=== PATIENT | male | born 1985 | race Caucasian/White ===

== ENCOUNTER 2022-12-10 05:59 | Emergency (ER) | payer OTHER, SELFPAY ==
[2022-12-10] VITALS (9 sets, daily range): BP systolic 114–182; BP diastolic 75–103; PULSE 51–71; RESP 15–21; TEMP 36.6; O2SAT 95–99; BMI 31.1
--- NOTE | 2022-12-10 06:10 | ED_ITS ---
HPI - General Adult <Janice Han MD - Last Filed: 12/11/22 02:23> General Chief complaint: Chest Pain Stated complaint: SEVERE HEART BURN Time Seen by Provider: 12/10/22 06:09 History of Present Illness HPI narrative: 37-year-old gentleman with occasional reflux for which he takes Pepcid no significant medical history otherwise was awakened from sleep at 5:30 a.m. this morning with severe burning chest pain that he presumed was heartburn. He is never had pain like this before. Notes that he had a handful of plain potato chips not too long before going to bed and attributed the pain initially to the dietary indiscretion. The pain has lessened and how he use describing central tightness/pressure over his chest. There was no diaphoresis, coughing, fever, dyspnea, palpitations. Not complaining of headache, nausea vomiting or lower abdominal pain. He says his mother and paternal grandfather both have heart problems but isn't clear that anyone in his family has evidence of early cardiac disease. Related Data Allergies Allergy/AdvReac Type Severity Reaction Status Date / Time No Known Drug Allergies Allergy Verified 12/10/22 06:16 Review of Systems <Janice Han MD - Last Filed: 12/11/22 02:23> Review of Systems Narrative: Pertinent positive and negative findings as per HPI Patient History <Janice Han MD - Last Filed: 12/11/22 02:23> Social History Smoking Status: Former smoker Exam <Janice Han MD - Last Filed: 12/11/22 02:23> Initial Vital Signs Initial Vital Signs: Vital Signs Temperature 97.9 F 12/10/22 06:00 Pulse Rate 65 12/10/22 06:00 Respiratory Rate 15 12/10/22 06:00 Blood Pressure 182/103 H 12/10/22 06:00 Pulse Oximetry 98 12/10/22 06:00 Oxygen Delivery Method Room Air 12/10/22 06:00 General: Healthy appearing, in no acute distress. Able to give a complete and coherent history. Well-nourished well-developed HEENT: Moist mucous membranes, normal sclera with reactive pupils, Neck: No JVD, supple Respiratory: Lungs are clear to auscultation, no wheezing no rales no rhonchi. Full and symmetrical air movement Cardiac: Regular rate and rhythm no murmurs no bruits Abdomen: Soft, no significant reproducible epigastric tenderness, good bowel tones, no flank pain Skin: Warm and dry, no rashes, no diaphoresis Neurologic: Grossly neurologically intact with no obvious asymmetries or abnormalities Extremities: No trauma, well perfused Psych: Cooperative, appropriate insight and affect <Paul Dumont DO - Last Filed: 12/10/22 12:16> Initial Vital Signs Initial Vital Signs: Vital Signs Temperature 97.9 F 12/10/22 06:00 Pulse Rate 65 12/10/22 06:00 Respiratory Rate 15 12/10/22 06:00 Blood Pressure 182/103 H 12/10/22 06:00 Pulse Oximetry 98 12/10/22 06:00 Oxygen Delivery Method Room Air 12/10/22 06:00 Scores <Janice Han MD - Last Filed: 12/11/22 02:23> HEART Score Heart Score Total: 0 <Paul Dumont DO - Last Filed: 12/10/22 12:16> HEART Score Heart Score history: Slightly Suspicious Heart Score EKG: Normal Heart Score Age: < 45 years old Heart Score risk factors: No known risk factors Heart Score troponin: < or = to normal limit Heart Score Total: 0 Course <Janice Han MD - Last Filed: 12/11/22 02:23> Orders Ordered: Discontinued Medications Aspirin (Aspirin 81 Mg Chew Tab) 324 mg PO NOW ONE Stop: 12/10/22 06:35 Last Admin: 12/10/22 06:37 Dose: 324 mg Documented By: DAMIAN Al Hydrox/Mg Hydrox/Simethicone 20 ml/ Lidocaine HCl 15 ml 0 ml PO NOW ONE Stop: 12/10/22 06:11 Last Admin: 12/10/22 07:03 Dose: Not Given Documented By: DAMIAN Magnesium Hydroxide (Magnesium Hydroxide 30 Ml Udc) 30 ml PO NOW ONE Stop: 12/10/22 06:15 Last Admin: 12/10/22 06:19 Dose: 30 ml Documented By: DAMIAN Nitroglycerin (Nitroglycerin 0.4 Mg Sl Tab) 0.4 mg SL [id number] PRN PRN Reason: Chest Pain Vital Signs Vital signs: Vital Signs - 8 hr 12/10/22 06:00 12/10/22 06:09 12/10/22 06:30 Temperature 97.9 F Pulse Rate 65 68 Respiratory Rate 15 Blood Pressure 182/103 H 142/93 H Pulse Oximetry 98 99 Oxygen Delivery Method Room Air 12/10/22 06:30 12/10/22 07:00 12/10/22 07:00 Temperature Pulse Rate 65 71 Respiratory Rate 19 16 Blood Pressure 123/75 Pulse Oximetry 97 95 Oxygen Delivery Method 12/10/22 07:30 12/10/22 07:30 12/10/22 08:00 Temperature Pulse Rate 71 Respiratory Rate 21 Blood Pressure 123/80 114/76 Pulse Oximetry 96 Oxygen Delivery Method 12/10/22 08:00 12/10/22 08:30 12/10/22 08:30 Temperature Pulse Rate 56 L 68 Respiratory Rate 17 20 Blood Pressure 132/87 Pulse Oximetry 96 97 Oxygen Delivery Method 12/10/22 09:00 12/10/22 09:00 12/10/22 09:14 Temperature Pulse Rate 51 L Respiratory Rate 15 Blood Pressure 127/87 131/90 Pulse Oximetry 97 Oxygen Delivery Method 12/10/22 09:14 Temperature Pulse Rate 62 Respiratory Rate 19 Blood Pressure Pulse Oximetry 97 Oxygen Delivery Method <Paul Dumont, - Last Filed: 12/10/22 12:16> Orders Ordered: Discontinued Medications Aspirin (Aspirin 81 Mg Chew Tab) 324 mg PO NOW ONE Stop: 12/10/22 06:35 Last Admin: 12/10/22 06:37 Dose: 324 mg Documented By: DAMIAN Al Hydrox/Mg Hydrox/Simethicone 20 ml/ Lidocaine HCl 15 ml 0 ml PO NOW ONE Stop: 12/10/22 06:11 Last Admin: 12/10/22 07:03 Dose: Not Given Documented By: DAMIAN Magnesium Hydroxide (Magnesium Hydroxide 30 Ml Udc) 30 ml PO NOW ONE Stop: 12/10/22 06:15 Last Admin: 12/10/22 06:19 Dose: 30 ml Documented By: DAMIAN Nitroglycerin (Nitroglycerin 0.4 Mg Sl Tab) 0.4 mg SL [id number] PRN PRN Reason: Chest Pain Vital Signs Vital signs: Vital Signs - 8 hr 12/10/22 06:00 12/10/22 06:09 12/10/22 06:30 Temperature 97.9 F Pulse Rate 65 68 Respiratory Rate 15 Blood Pressure 182/103 H 142/93 H Pulse Oximetry 98 99 Oxygen Delivery Method Room Air 12/10/22 06:30 12/10/22 07:00 12/10/22 07:00 Temperature Pulse Rate 65 71 Respiratory Rate 19 16 Blood Pressure 123/75 Pulse Oximetry 97 95 Oxygen Delivery Method 12/10/22 07:30 12/10/22 07:30 12/10/22 08:00 Temperature Pulse Rate 71 Respiratory Rate 21 Blood Pressure 123/80 114/76 Pulse Oximetry 96 Oxygen Delivery Method 12/10/22 08:00 12/10/22 08:30 12/10/22 08:30 Temperature Pulse Rate 56 L 68 Respiratory Rate 17 20 Blood Pressure 132/87 Pulse Oximetry 96 97 Oxygen Delivery Method 12/10/22 09:00 12/10/22 09:00 12/10/22 09:14 Temperature Pulse Rate 51 L Respiratory Rate 15 Blood Pressure 127/87 131/90 Pulse Oximetry 97 Oxygen Delivery Method 12/10/22 09:14 Temperature Pulse Rate 62 Respiratory Rate 19 Blood Pressure Pulse Oximetry 97 Oxygen Delivery Method Medical Decision Making <Janice Han MD - Last Filed: 12/11/22 02:23> Lab Data 12/10/22 06:30 12/10/22 06:30 Labs: Lab Results 12/10/22 12/10/22 12/10/22 Range/Units 06:30 06:30 06:30 WBC 7.7 (4.5-11.0) X10^3/uL RBC 4.90 (4.5-5.9) X10^6/uL Hgb 15.2 (13.5-17.5) g/dL Hct 43.9 (41-53) % MCV 89.6 (80-100) fL MCH 31.0 (26-34) PG MCHC 34.6 (30-36) % RDW 13.1 (11.6-14.8) % Plt Count 238 (150-400) X10^3/uL Neut % (Auto) 50.9 (50-75) % Lymph % (Auto) 32.2 (25-40) % [place] % (Auto) 9.5 (3-14) % Eos % (Auto) 6.7 H (2-4) % Baso % (Auto) 0.7 (0-2) % Neut # (Auto) 3900 (2009-0165) /uL Lymph # (Auto) 2500 (3969-6709) /uL [place] # (Auto) 700 (0-900) /uL Eos # (Auto) 500 H (0-450) /uL Baso # (Auto) 100 (0-100) /uL PT 12.0 (10.1-12.7) SECONDS INR 1.0 (0.9-1.3) APTT 31 (26-36) SECONDS Sodium 138 (137-145) mmol/L Potassium 3.9 (3.4-5.1) mmol/L Chloride 104 (98-107) mmol/L Carbon Dioxide 29 (22-32) mmol/L BUN 16 (9-20) mg/dL Creatinine 0.84 (0.66-1.25) mg/dL Estimated GFR > 60 (>60) mL/min BUN/Creatinine Ratio 19.0 (6-22) Glucose 96 (70-100) mg/dL Calcium 8.7 (8.4-10.2) mg/dL Magnesium 2.1 (1.6-2.3) mg/dL Total Bilirubin 0.4 (0.2-1.3) mg/dL AST 33 (17-59) IU/L ALT 43 (<50) IU/L Alkaline Phosphatase 55 (38-126) U/L Total Creatine Kinase 139 (55-170) U/L CK-MB (CK-2) TNP CK-MB (CK-2) Rel Index TNP Troponin I < 0.012 (0.01-0.034) ng/mL Total Protein 6.8 (6.3-8.2) g/dL Albumin 4.1 (3.5-5.0) g/dL Globulin 2.7 (1.7-4.1) g/dL Albumin/Globulin Ratio 1.5 (1.0-2.8) Lipase 146 (23-300) U/L 12/10/22 Range/Units 08:25 WBC (4.5-11.0) X10^3/uL RBC (4.5-5.9) X10^6/uL Hgb (13.5-17.5) g/dL Hct (41-53) % MCV (80-100) fL MCH (26-34) PG MCHC (30-36) % RDW (11.6-14.8) % Plt Count (150-400) X10^3/uL Neut % (Auto) (50-75) % Lymph % (Auto) (25-40) % [place] % (Auto) (3-14) % Eos % (Auto) (2-4) % Baso % (Auto) (0-2) % Neut # (Auto) (1995-3306) /uL Lymph # (Auto) (5955-6291) /uL [place] # (Auto) (0-900) /uL Eos # (Auto) (0-450) /uL Baso # (Auto) (0-100) /uL PT (10.1-12.7) SECONDS INR (0.9-1.3) APTT (26-36) SECONDS Sodium (137-145) mmol/L Potassium (3.4-5.1) mmol/L Chloride (98-107) mmol/L Carbon Dioxide (22-32) mmol/L BUN (9-20) mg/dL Creatinine (0.66-1.25) mg/dL Estimated GFR (>60) mL/min BUN/Creatinine Ratio (6-22) Glucose (70-100) mg/dL Calcium (8.4-10.2) mg/dL Magnesium (1.6-2.3) mg/dL Total Bilirubin (0.2-1.3) mg/dL AST (17-59) IU/L ALT (<50) IU/L Alkaline Phosphatase (38-126) U/L Total Creatine Kinase (55-170) U/L CK-MB (CK-2) CK-MB (CK-2) Rel Index Troponin I < 0.012 (0.01-0.034) ng/mL Total Protein (6.3-8.2) g/dL Albumin (3.5-5.0) g/dL Globulin (1.7-4.1) g/dL Albumin/Globulin Ratio (1.0-2.8) Lipase (23-300) U/L MDM Narrative Medical decision making narrative: CC: Severe burning central chest pain. Acute finding uncertain prognosis Data collected from: patient, Medical records reviewed: No records available for review Differential considered: Reflux, acute coronary syndrome, pneumothorax Exam documented above, pertinent findings include: Fairly benign exam with no epigastric tenderness on palpation. No evidence of acute surgical abdomen. Lab Test results independently reviewed as above. Pertinent findings: Independently reviewed EKG: sinus rhythm at a rate of 72. Normal intervals, normal axis. No acute ischemic changes Imaging studies independently reviewed: Consultations: Treatments: Initially given Maalox(viscous lidocaine is back ordered). Re-evaluations: Discussion: <Paul Dumont DO - Last Filed: 12/10/22 12:16> Lab Data Labs: Lab Results 12/10/22 12/10/22 12/10/22 Range/Units 06:30 06:30 06:30 WBC 7.7 (4.5-11.0) X10^3/uL RBC 4.90 (4.5-5.9) X10^6/uL Hgb 15.2 (13.5-17.5) g/dL Hct 43.9 (41-53) % MCV 89.6 (80-100) fL MCH 31.0 (26-34) PG MCHC 34.6 (30-36) % RDW 13.1 (11.6-14.8) % Plt Count 238 (150-400) X10^3/uL Neut % (Auto) 50.9 (50-75) % Lymph % (Auto) 32.2 (25-40) % [place] % (Auto) 9.5 (3-14) % Eos % (Auto) 6.7 H (2-4) % Baso % (Auto) 0.7 (0-2) % Neut # (Auto) 3900 (5561-9478) /uL Lymph # (Auto) 2500 (7128-1902) /uL [place] # (Auto) 700 (0-900) /uL Eos # (Auto) 500 H (0-450) /uL Baso # (Auto) 100 (0-100) /uL PT 12.0 (10.1-12.7) SECONDS INR 1.0 (0.9-1.3) APTT 31 (26-36) SECONDS Sodium 138 (137-145) mmol/L Potassium 3.9 (3.4-5.1) mmol/L Chloride 104 (98-107) mmol/L Carbon Dioxide 29 (22-32) mmol/L BUN 16 (9-20) mg/dL Creatinine 0.84 (0.66-1.25) mg/dL Estimated GFR > 60 (>60) mL/min BUN/Creatinine Ratio 19.0 (6-22) Glucose 96 (70-100) mg/dL Calcium 8.7 (8.4-10.2) mg/dL Magnesium 2.1 (1.6-2.3) mg/dL Total Bilirubin 0.4 (0.2-1.3) mg/dL AST 33 (17-59) IU/L ALT 43 (<50) IU/L Alkaline Phosphatase 55 (38-126) U/L Total Creatine Kinase 139 (55-170) U/L CK-MB (CK-2) TNP CK-MB (CK-2) Rel Index TNP Troponin I < 0.012 (0.01-0.034) ng/mL Total Protein 6.8 (6.3-8.2) g/dL Albumin 4.1 (3.5-5.0) g/dL Globulin 2.7 (1.7-4.1) g/dL Albumin/Globulin Ratio 1.5 (1.0-2.8) Lipase 146 (23-300) U/L 12/10/22 Range/Units 08:25 WBC (4.5-11.0) X10^3/uL RBC (4.5-5.9) X10^6/uL Hgb (13.5-17.5) g/dL Hct (41-53) % MCV (80-100) fL MCH (26-34) PG MCHC (30-36) % RDW (11.6-14.8) % Plt Count (150-400) X10^3/uL Neut % (Auto) (50-75) % Lymph % (Auto) (25-40) % [place] % (Auto) (3-14) % Eos % (Auto) (2-4) % Baso % (Auto) (0-2) % Neut # (Auto) (5946-6276) /uL Lymph # (Auto) (5284-9457) /uL Maries # (Auto) (0-900) /uL Eos # (Auto) (0-450) /uL Baso # (Auto) (0-100) /uL PT (10.1-12.7) SECONDS INR (0.9-1.3) APTT (26-36) SECONDS Sodium (137-145) mmol/L Potassium (3.4-5.1) mmol/L Chloride (98-107) mmol/L Carbon Dioxide (22-32) mmol/L BUN (9-20) mg/dL Creatinine (0.66-1.25) mg/dL Estimated GFR (>60) mL/min BUN/Creatinine Ratio (6-22) Glucose (70-100) mg/dL Calcium (8.4-10.2) mg/dL Magnesium (1.6-2.3) mg/dL Total Bilirubin (0.2-1.3) mg/dL AST (17-59) IU/L ALT (<50) IU/L Alkaline Phosphatase (38-126) U/L Total Creatine Kinase (55-170) U/L CK-MB (CK-2) CK-MB (CK-2) Rel Index Troponin I < 0.012 (0.01-0.034) ng/mL Total Protein (6.3-8.2) g/dL Albumin (3.5-5.0) g/dL Globulin (1.7-4.1) g/dL Albumin/Globulin Ratio (1.0-2.8) Lipase (23-300) U/L MDM Narrative Medical decision making narrative: CC: Severe burning central chest pain. Acute finding uncertain prognosis Data collected from: patient, Medical records reviewed: No records available for review Differential considered: Reflux, acute coronary syndrome, pneumothorax Exam documented above, pertinent findings include: Fairly benign exam with no epigastric tenderness on palpation. No evidence of acute surgical abdomen. Lab Test results independently reviewed as above. Pertinent findings: Independently reviewed EKG: sinus rhythm at a rate of 72. Normal intervals, normal axis. No acute ischemic changes Imaging studies independently reviewed: CXR without acute findings Treatments: Initially given Maalox(viscous lidocaine is back ordered). Re-evaluations: patient pain free for duration [0700] (Tim) Patient received in sign out from [Emely]. I have reviewed the clinical course and performed an independent history and physical exam. Patient is currently pain-free Patient has been pain-free for multiple hours. Heart score pathway employed and low risk, EKGs are nonocclusive, troponin x2 negative. Patient has no exertional symptoms, radiation of symptoms or associated symptoms such as dizziness, lightheadedness, unexplained diaphoresis or exercise intolerance. Pulmonary embolism considered but thought extremely unlikely given low risk Wells and PERC negative. No evidence pneumonia or pneumothorax on imaging. Patient likely Discharge Plan Departure Patient Disposition: Home Clinical Impression: Atypical chest pain Instructions: DI for Atypical Chest Pain Activity Restrictions/Additional Instructions: *You have been diagnosed with [atypical chest pain. As we discussed your history and physical exam are very reassuring and there is no indication of heart attack, blood clot, collapsed lung or other life-threatening diagnosis that requires a specific intervention] *What to do: *Please continue to take your regular medications as directed. *Please follow up with your primary care provider in 2-3 days, call for an appointment. Let them know you were seen in the Emergency Department and that we ask that you be seen in follow up. We will electronically transmit a record of today's note if your PCP is in our system *If you do not have a primary care provider please contact the [facility] Resource line at [phone]. They will ask some questions about your medical history and help get you set up with a doctor in the community. *Return to Emergency Department if you should have any new, worsening or concerning symptoms, such as [fever greater than 101 F, shaking chills, wo rsening pain, persistent vomiting or other bothersome symptoms] Stand Alone Forms: Patient Portal/API
[2022-12-10] MEDS: MAGNESIUM HYDROXIDE 30 ML UDC PO (06:19)
--- NOTE | 2022-12-10 06:34 | DI.RAD.S_ITS ---
PROCEDURE: XR CHEST 1V INDICATIONS: chest pain TECHNIQUE: One view of the chest was acquired. COMPARISON: None. FINDINGS: Surgical changes and devices: None. Lungs and pleura: Lungs are clear. No pleural effusions or pneumothorax. Mediastinum: Mediastinal contours appear normal. Heart size is normal. Bones and chest wall: No suspicious bony lesions. Overlying soft tissues appear unremarkable. IMPRESSION: No acute cardiopulmonary abnormality. Approved by: Familia Tierney M.D. on 12/10/2022 at 8:19
[2022-12-10] MEDS: ASPIRIN 81 MG CHEW TAB 324 MG PO (06:37)
[2022-12-10 06:38] LABS: Add Manual Diff / Slide Review NO; Basophils Absolute Auto 100 /uL (0-100); Basophils Percent Auto 0.7 % (0-2); Eosinophils Absolute Auto 500 /uL (0-450); Eosinophils Percent Auto 6.7 % (2-4); Hematocrit 43.9 % (41-53); Hemoglobin 15.2 g/dL (13.5-17.5); Lymphocytes Absolute Auto 2500 /uL (1100-4500); Lymphocytes Percent Auto 32.2 % (25-40); Mean Corpuscular HGB Conc 34.6 % (30-36); Mean Corpuscular Volume 89.6 fL (80-100); Monocytes Absolute Auto 700 /uL (0-900); Monocytes Percent Auto 9.5 % (3-14); Neutrophils Absolute Auto 3900 /uL (1500-7000); Neutrophils Percent Auto 50.9 % (50-75); Platelet Count 238 X10^3/uL (150-400); Red Cell Distribution Width 13.1 % (11.6-14.8); White Blood Cell Count 7.7 X10^3/uL (4.5-11.0)
[2022-12-10 06:46] LABS: PTT Partial Thromboplastin Tim 31 SECONDS (26-36)
[2022-12-10 06:48] LABS: Alanine Aminotransferase 43 IU/L (<50); Albumin 4.1 g/dL (3.5-5.0); Albumin Globulin Ratio 1.5 (1.0-2.8); Alkaline Phosphatase 55 U/L (38-126); Aspartate Aminotransferase 33 IU/L (17-59); Bilirubin Total 0.4 mg/dL (0.2-1.3); Blood Urea Nitrogen 16 mg/dL (9-20); Calcium 8.7 mg/dL (8.4-10.2); Carbon Dioxide 29 mmol/L (22-32); Chloride 104 mmol/L (98-107); Creatine Kinase 139 U/L (55-170); Estimated Glomerular Filt Rate > 60 mL/min (>60); Globulin 2.7 g/dL (1.7-4.1); Glucose 96 mg/dL (70-100); HEMOLYSIS < 15 (0-50); Lipase 146 U/L (23-300); Magnesium 2.1 mg/dL (1.6-2.3); Potassium 3.9 mmol/L (3.4-5.1); Sodium 138 mmol/L (137-145); Total Protein 6.8 g/dL (6.3-8.2)
[2022-12-10 06:59] LABS: Troponin I < 0.012 ng/mL (0.01-0.034)
[2022-12-10 08:59] LABS: Troponin I < 0.012 ng/mL (0.01-0.034)
== END 2022-12-10 09:17 | disposition home or self-care (01) ==
PROVIDERS: Emergency Medicine; Emergency Provider Emergency Medicine
DX: R07.89 Other chest pain (principal)
CPT/HCPCS: 36415; 71045; 80053; 82550; 83690; 83735; 84484; 85025; 85610; 85730; 93005; 93010; 99284

== ENCOUNTER 2023-08-25 01:36 | Emergency (ER) | payer OTHER, SELFPAY ==
[2023-08-25] VITALS (7 sets, daily range): BP systolic 133–173; BP diastolic 81–107; PULSE 64–85; RESP 17–38; TEMP 36.6; O2SAT 96–98; BMI 32.8
--- NOTE | 2023-08-25 02:10 | DI.RAD.S_ITS ---
PROCEDURE: XR CHEST 1V INDICATIONS: CENTRAL CHEST PAIN TECHNIQUE: One view of the chest was acquired. COMPARISON: [facility], CR, XR CHEST 1V, 12/10/2022, 7:01. FINDINGS: Surgical changes and devices: None. Lungs and pleura: Lungs are clear. No pleural effusions or pneumothorax. Mediastinum: Mediastinal contours appear normal. Heart size is normal. Bones and chest wall: No suspicious bony lesions. Overlying soft tissues appear unremarkable. IMPRESSION: No acute cardiopulmonary abnormality is seen. No significant discrepancy with the shift supervisor film processing radiology preliminary report. Dictated by: Severiano Shah M.D. on 08/25/2023 at 7:48 Approved by: Severiano Shah M.D. on 08/25/2023 at 7:48
--- NOTE | 2023-08-25 02:11 | ED_ITS ---
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 Patient states that he was working on the [employer] and had finished dinner. He went to his duties and felt a gradually increasing midepigastric/lower chest pain that was so severe took his breath away. He states that staff on the ship administered oxygen but it did not help his symptoms. They then gave him 2 baby aspirin. He states that his symptoms very gradually began to resolve, and he is currently pain-free, but the intensity of the pain caused him to come to the emergency department for evaluation. Neff history of heart disease in his grandmother, no other known family history of coronary disease. Remote history of smoking but it has been multiple years. Related Data Home Medications Medication Instructions Recorded Confirmed famotidine 20 mg tablet 20 mg PO BID 01/31/23 01/31/23 Allergies Allergy/AdvReac Type Severity Reaction Status Date / Time No Known Drug Allergies Allergy Verified 01/31/23 15:44 Review of Systems Review of Systems Narrative: Negative except as noted above Patient History Social History Smoking Status: Former smoker Smoking Status: Former smoker Substance Use Type: does not use Exam Initial Vital Signs Initial Vital Signs: Vital Signs Pulse Rate 82 08/25/23 01:44 Pulse Oximetry 98 08/25/23 01:44 Const: Awake, alert, no acute distress, nontoxic appearing Eyes: PERRL, EOMI, conjunctiva normal ENT: Atraumatic, dentition normal, mucous membranes moist Cardiac: regular rate, regular rhythm RESP: unlabored, clear bilaterally, no wheezing GI: Atraumatic, soft, nontender, nondistended, no rebound, no guarding MSK: Atraumatic, full range of motion, pulses equal Skin: Warm, Dry, intact, no rashes Neuro: AO x3, CN II-XII grossly intact, moves all extremities Psych: affect normal, mood normal, not suicidal, not homicidal Course Orders Ordered: ED Orders 08/25/23 01:46 EKG-12 Lead Stat 08/25/23 01:48 CBC Auto Diff [Complete Blood Count AUTO DIFF] Stat CMP [Comprehensive Metabolic Panel] Stat Lipase Stat Troponin & CK Cardiac Panel Stat 08/25/23 02:10 Chest [XR chest 1V] Stat Vital Signs Vital signs: Vital Signs - 8 hr 08/25/23 01:44 08/25/23 01:47 08/25/23 01:47 Temperature Pulse Rate 82 72 Respiratory Rate Blood Pressure 173/107 H Pulse Oximetry 98 97 Oxygen Delivery Method 08/25/23 01:49 08/25/23 01:59 08/25/23 02:00 Temperature 97.8 F Pulse Rate 85 73 Respiratory Rate 17 38 H Blood Pressure 173/107 H 154/89 H Pulse Oximetry 98 96 Oxygen Delivery Method Room Air 08/25/23 02:00 08/25/23 02:30 08/25/23 02:30 Temperature Pulse Rate 71 64 Respiratory Rate 26 H 33 H Blood Pressure 154/89 H 137/81 Pulse Oximetry 96 Oxygen Delivery Method Room Air MDM - Chest Pain Differential Diagnosis Differential diagnosis: Likely fracture of rib, pneumothorax and stable angina Lab Data 08/25/23 01:48 08/25/23 01:48 Labs: Lab Results 08/25/23 Range/Units 01:48 WBC 15.5 H (4.5-11.0) X10^3/uL RBC 4.98 (4.5-5.9) X10^6/uL Hgb 15.7 (13.5-17.5) g/dL Hct 45.2 (41-53) % MCV 90.8 (80-100) fL MCH 31.6 (26-34) PG MCHC 34.8 (30-36) % RDW 12.8 (11.6-14.8) % Plt Count 268 (150-400) X10^3/uL Neut % (Auto) 80.9 H (50-75) % Lymph % (Auto) 9.8 L (25-40) % [place] % (Auto) 5.1 (3-14) % Eos % (Auto) 2.1 (2-4) % Baso % (Auto) 2.1 H (0-2) % Neut # (Auto) 34147 H (1800-5514) /uL Lymph # (Auto) 1500 (2954-2575) /uL [place] # (Auto) 800 (0-900) /uL Eos # (Auto) 300 (0-450) /uL Baso # (Auto) 300 H (0-100) /uL Sodium 139 (137-145) mmol/L Potassium 3.9 (3.4-5.1) mmol/L Chloride 104 (98-107) mmol/L Carbon Dioxide 25 (22-32) mmol/L BUN 21 H (9-20) mg/dL Creatinine 0.98 (0.66-1.25) mg/dL Estimated GFR > 60 (>60) mL/min BUN/Creatinine Ratio 21.4 (6-22) Glucose 112 H (70-100) mg/dL Calcium 9.5 (8.4-10.2) mg/dL Total Bilirubin 0.8 (0.2-1.3) mg/dL AST 167 H (17-59) IU/L ALT 187 H (<50) IU/L Alkaline Phosphatase 67 (38-126) U/L Total Creatine Kinase 127 (55-170) U/L Troponin I < 0.012 (0.01-0.034) ng/mL Total Protein 7.7 (6.3-8.2) g/dL Albumin 4.4 (3.5-5.0) g/dL Globulin 3.3 (1.7-4.1) g/dL Albumin/Globulin Ratio 1.3 (1.0-2.8) Lipase 163 (23-300) U/L ECG Data Interpretation: Normal sinus rhythm, rate 79 beats per minute. Normal NC, normal axis, no ST T wave changes MDM Narrative Medical decision making narrative: Well-appearing patient with now resolved central lower chest pain/midepigastric pain. Currently pain-free, no physical exam abnormalities. Abdomen is soft, nontender, lungs are clear to auscultation bilaterally, EKG shows normal sinus rhythm without concerning findings. Laboratory work is reviewed. WBC count 15.5, of uncertain significance. Patient also has new elevation in liver enzymes with AST 167, ALT 187 (previous values 33, 43). Troponin undetectable. X-ray chest negative for acute process. Patient reassessed, resting comfortably in bed, continues to be pain-free. Patient informed of all lab and imaging findings including his elevated liver enzymes. I counseled that especially with his history of abnormal biopsy on EGD he should call his stomach doctor for follow up and closer monitoring. ED return precautions discussed at bedside. Patient expressed understanding of the plan and is in agreement at this time. All questions answered at the time of discharge. Discharge Plan Departure Patient Disposition: Home Clinical Impression: Chest pain, Elevated liver enzymes Instructions: DI for Chest Pain Activity Restrictions/Additional Instructions: Your EKG and chest x-ray were normal. I would like to point out that you had a mild elevation in your liver enzymes here today. I do not know if this is related to your chest pain or not, but it is worthwhile following up with your primary care physician about these laboratory results. Prescriptions: No Action famotidine 20 mg tablet 20 mg PO BID Referrals: [place],Doctor, [Primary Care Provider] - Stand Alone Forms: Patient Portal/API
[2023-08-25 02:18] LABS: Add Manual Diff / Slide Review NO; Basophils Absolute Auto 300 /uL (0-100); Basophils Percent Auto 2.1 % (0-2); Eosinophils Absolute Auto 300 /uL (0-450); Eosinophils Percent Auto 2.1 % (2-4); Hematocrit 45.2 % (41-53); Hemoglobin 15.7 g/dL (13.5-17.5); Lymphocytes Absolute Auto 1500 /uL (1100-4500); Lymphocytes Percent Auto 9.8 % (25-40); Mean Corpuscular HGB Conc 34.8 % (30-36); Mean Corpuscular Hemoglobin 31.6 PG (26-34); Mean Corpuscular Volume 90.8 fL (80-100); Monocytes Absolute Auto 800 /uL (0-900); Monocytes Percent Auto 5.1 % (3-14); Neutrophils Absolute Auto 12500 /uL (1500-7000); Neutrophils Percent Auto 80.9 % (50-75); Platelet Count 268 X10^3/uL (150-400); Red Blood Cell Count 4.98 X10^6/uL (4.5-5.9); Red Cell Distribution Width 12.8 % (11.6-14.8); White Blood Cell Count 15.5 X10^3/uL (4.5-11.0)
[2023-08-25 02:23] LABS: Alanine Aminotransferase 187 IU/L (<50); Albumin 4.4 g/dL (3.5-5.0); Albumin Globulin Ratio 1.3 (1.0-2.8); Alkaline Phosphatase 67 U/L (38-126); Aspartate Aminotransferase 167 IU/L (17-59); BUN Creatinine Ratio 21.4 (6-22); Bilirubin Total 0.8 mg/dL (0.2-1.3); Blood Urea Nitrogen 21 mg/dL (9-20); Calcium 9.5 mg/dL (8.4-10.2); Carbon Dioxide 25 mmol/L (22-32); Chloride 104 mmol/L (98-107); Creatine Kinase 127 U/L (55-170); Estimated Glomerular Filt Rate > 60 mL/min (>60); Globulin 3.3 g/dL (1.7-4.1); Glucose 112 mg/dL (70-100); HEMOLYSIS < 15 (0-50); Lipase 163 U/L (23-300); Potassium 3.9 mmol/L (3.4-5.1); Sodium 139 mmol/L (137-145); Total Protein 7.7 g/dL (6.3-8.2)
[2023-08-25 02:34] LABS: Troponin I < 0.012 ng/mL (0.01-0.034)
== END 2023-08-25 03:16 | disposition home or self-care (01) ==
PROVIDERS: Emergency Provider Emergency Medicine
DX: R07.9 Chest pain, unspecified (principal); R74.8 Abnormal levels of other serum enzymes
CPT/HCPCS: 36415; 71045; 80053; 82550; 83690; 84484; 85025; 93005; 99284